=== PATIENT | female | born 2000 | race Two or more races ===

== ENCOUNTER 2024-03-20 09:42 | Emergency (ER) | payer OTHER ==
[2024-03-20 09:53] VITALS: BP 114/59; PULSE 94; RESP 20; TEMP 98.4; BMI 32.5
[2024-03-20 13:24] LABS: HIV INTERPRETATION NEGATIVE (NEGATIVE)
== END 2024-03-20 16:13 | disposition home or self-care (01) ==
LOC: JERFT 09:42
DX: O20.9 Hemorrhage in early pregnancy, unspecified (principal); Z3A.01 Less than 8 weeks gestation of pregnancy
CPT/HCPCS: 36415; 76817-TC; 84702; 86803; 87389; 99284-25